=== PATIENT | male | born 1940 | race Caucasian/White ===

== ENCOUNTER 2022-04-16 14:18 | Outpatient (CLI) | payer MEDICARE, SELFPAY ==
[2022-04-16 14:18] LABS: Albumin* 3.8 g/dL (3.3-5.0)
[2022-04-16 14:19] LABS: Chloride* 106 mmol/L (96-114); Potassium* 4.3 mmol/L (3.6-5.1); Sodium* 142 mmol/L (135-149)
[2022-04-16 14:21] LABS: Bilirubin Total* 0.4 mg/dL (0.1-1.5); Carbon Dioxide* 27 mmol/L (20-32); Cholesterol* 133 mg/dL (90-199); Creatinine* 1.3 mg/dL (0.5-1.5); Estimated Glomerular Filt Rate 55 ml/min
[2022-04-16 14:22] LABS: Alanine Aminotransferase* 27 U/L (4-50); Alkaline Phosphatase* 106 U/L (40-150); Aspartate Amino Transferase* 27 U/L (12-35); Blood Urea Nitrogen* 28 mg/dL (7-30); Calcium* 8.7 mg/dL (8.4-10.6); Glucose* 134 mg/dL (60-115); HDL Cholesterol* 37 mg/dL (>=40); LDL Cholesterol Calculated 77 mg/dL (<100); Triglycerides* 96 mg/dL (40-149)
[2022-04-16 14:50] LABS: PSA Screen* 2.82 ng/mL (0.10-4.00)
== END 2022-04-16 14:19 | disposition home or self-care (01) ==
PROVIDERS: PCP Family Medicine; Visit Provider Family Medicine
DX: E78.5 Hyperlipidemia, unspecified (principal); I10 Essential (primary) hypertension; Z00.00 Encounter for general adult medical examination without abnormal findings
CPT/HCPCS: 80053; 80061; 84153

== ENCOUNTER 2022-06-12 11:15 | Outpatient (RCR) | payer MEDICARE, SELFPAY ==
--- NOTE | 2022-05-01 15:51 | PT.OPE ---
[facility] PT [facility] Eval Start: 05/01/22 12:38 Freq: Status: Active Protocol: Document 05/01/22 15:47 CJT (Rec: 05/01/22 15:50 CJT [id number]) E-signed By Segun Cotter PT Physical Therapy Outpatient Evaluation Insurance Information Recert Due Date 06/12/22 Insurance Name Medicare Jason,Raghavendra Medical Diagnosis M25.511 - R shoulder pain Treating Diagnosis M25.511 - R shoulder pain Referring Chandana Grace MD Subjective Subjective Pt presents with complaints of R shoulder pain and R elbow pain. Pt does not know where the pain came from. Can no longer sleep on his R side due to pain. Rolling on to his R side causes him to wake. Elevating the arm causes pain in the shoulder and elbow as well. Pain is 3-5/10 on average. Pt has been trying to avoid lifting his arm to reach objects or even eating due to pain in shoulder and elbow. 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 Date of Last Physician Visit 04/22/22 Current Work Status Retired Precautions Therapy Limitations/Systems Review Not Limited Objective Range of Motion Cervical ROM - WFL R Shoulder ROM Flexion/Abduction/IR/ER - 135/ 125/30(PSIS)/65 L Shoulder ROM Flexion/Abduction/IR/ER - 135/ 145/45 (T12)/80 Strength Cervical Strength - 5/5 MMT for all R Shoulder Strength Flexion - 5/5 MMT Abduction - 5/5 MMT * IR - 5/5 MMT * ER - 4/5 MMT * Empty Can - 4/5 MMT * *denotes pain in shoulder L Shoulder ROM - 5/5 MMT for all Palpation Palpation: tender with palpation to R UT, pec minor, infraspinatus, and serratus anterior; spasms noted in each of these mm as well Posture Rounded shoulders, excessive thoracic kyphosis Other/Pertinent Objective [place]'s, Sahni/Madi, Speeds, Jass's tests negative Assessment Assessment/Impression Pt is an 82 year ld male who presents to OP PT clinic with complaints of R shoulder pain. Pts pain is sharp, intermittent, and relieves with rest. Pain is made worse with elevation and laying on his R side in bed. This often wakes him up at night due to pain when he rolls over. Testing reveals deficits in strength of R shoulder and ROM of B shoulders (See objective ). Skilled PT services are medically necessary to address deficits and return patient to highest level of function. Recommend physical therapy sessions 2/week for 6 weeks. Pt agrees with this plan. Printout of HEP was given for I completion and pt gives verbal understanding of each exercise. Primary Functional Limitations Laying on R side, elevating R arm Plan of Care Rehabilitation Potential Good Physical Therapy Goals STG - To be completed in 2-3 weeks: 1. Pt will demonstrate improved shoulder flexion and abduction by 10+ degrees so that they may reach for cans of soup on top shelf in pantry . 2. Pt will report reduction in shoulder pain by factor of 2 so that they may sleep without waking due to pain while shifting position in the night . LTG - To be completed in 6-8 weeks: 1. Pt to be I with HEP so that they may I manage progression of symptoms. 2. Pt will report ability to lay on R shoulder in bed without increase in pain so that they may sleep in preferred position to achieve better night's sleep. 3. Pt will demo equal ROM bilaterally and full and pain free strength so that they may lift pans to top shelf in cupboard. Treatment Plan/Direct Interventions Heat,Ice/Cold/Vasopneumatic, Joint Mobilization,Manual Therapy,Self-Care/Home Management,Therapeutic Exercises,Ultrasound Frequency/Duration 2/week for 6 weeks Patient Will Be Discharged From Therapy Completion of LTG(s),Skills Plateau,Independent w/HEP, Independently Progressing Evaluation Billing Untimed Code Treatment Minutes 33 PT Eval No Charge No Complexity Low Certification Information Initial Certification Date 05/01/22 Ending Certification Date 06/12/22 Provider Signature Shows Agreement With POC & Medical Necessity Physician Comment/Change Comment or Changes Physician NPI Number #
--- NOTE | 2022-06-10 12:14 | PT.OPDN ---
PT [facility] Daily Note PT [facility] Out[facility] Daily Note Start: 05/01/22 12:38 Freq: Status: Active Protocol: Document 06/10/22 11:16 CJT (Rec: 06/10/22 12:14 CJT [id number]) E-signed By Segun Cotter, PT PT [facility] Daily Progress Note Visit Information Note Type Recert/Progress Note Visit Number 10 Insurance Authorized Visits tbd Physician Authorized Visits eval and treat Insurance Information Recert Due Date 06/12/22 Insurance Name Medicare B,UCare Medical Diagnosis M25.511 - R shoulder pain Treating Diagnosis M25.511 - R shoulder pain Referring Chandana Grace MD Subjective Subjective Pt is pleased with his progress and has no complaints in regard to his shoulder at this time. Has been moderately consistent with his HEP. Pain Comments 0/10 Home Exercise Home Exercise Comments [id number] Objective Other/Pertinent Objective R shoulder AROM: 150/164/65(L2 )/85 -Initial eval: 135/125/30(PSIS )/65 L shoulder AROM: 145/160/L1/ 85 Shoulder strength measured as 5/5 MMT for all motions bilaterally Patient Instructed in Risks/Benefits Yes Therapeutic Exercise Therapeutic Exercise Minutes (minutes) 18 Therapeutic Exercise: To Restore UBE x 6 minutes Functional Status Flexion stretch with OP x 60 Abduction stretch with OP x 60 Passive pec stretch 2x30 Seated CC Row 3 x 10, 27.5#, 35#, 40# Seated shoulder ER with palms up/down 2 x 10 ea, 4 hold Wall shoulder flexion stretch 2 x 30 Wall abduction stretch 2 x 30 Manual Therapy Techniques Manual Therapy Minutes (minutes) 25 Manual Therapy Techniques STM performed to R>L UT, levator, pec minor/major, LHBT , infraspinatus, teres group to reduce tissue tension and improve extensibility. Treatment Minutes Timed Code Treatment Minutes 43 Total Treatment Time 43 Billing Units Manual Therapy Units 2 Therapeutic Exercise Units 1 Assessment/Impression Assessment/Impression Shorty shows well-improved shoulder ROM since starting physical therapy. He was very consistent with his HEP early on but has since reduced his frequency. Strength measures 5 /5 MMT for all shoulder motions B. With [place] posture and thoracic kyphosis I would assume that his overall improvement has hit a plateau. Will meet for final session on Friday to devise comprehensive HEP for I maintenance moving forward. Plan of Care Physical Therapy Goals STG - To be completed in 2-3 weeks: 1. Pt will demonstrate improved shoulder flexion and abduction by 10+ degrees so that they may reach for cans of soup on top shelf in pantry . MET 2. Pt will report reduction in shoulder pain by factor of 2 so that they may sleep without waking due to pain while shifting position in the night . MET LTG - To be completed in 6-8 weeks: 1. Pt to be I with HEP so that they may I manage progression of symptoms. 2. Pt will report ability to lay on R shoulder in bed without increase in pain so that they may sleep in preferred position to achieve better night's sleep. MET 3. Pt will demo equal ROM bilaterally and full and pain free strength so that they may lift pans to top shelf in cupboard. MET Daily Plan of Care Continue per POC Recertification Information Provider Signature Shows Agreement With POC & Medical Necessity
== END 2022-09-13 08:14 | disposition home or self-care (01) ==
PROVIDERS: PCP Family Medicine; Visit Provider Family Medicine
DX: M25.511 Pain in right shoulder (principal); Z51.89 Encounter for other specified aftercare
CPT/HCPCS: 97110; 97140; 97161

== ENCOUNTER 2023-06-12 14:56 | Outpatient (CLI) | payer MEDICARE, SELFPAY | END 2023-06-12 14:57 | disposition home or self-care (01) | PROVIDERS: PCP Family Medicine; Visit Provider Family Medicine | DX: Z12.5 Encounter for screening for malignant neoplasm of prostate (principal); I10 Essential (primary) hypertension; E78.2 Mixed hyperlipidemia; Z79.899 Other long term (current) drug therapy; R73.03 Prediabetes | CPT/HCPCS: 80053; 80061; 82306; 84153; 84550 ==

== ENCOUNTER 2023-09-16 10:05 | Outpatient (CLI) | payer MEDICARE, SELFPAY | END 2023-09-16 10:06 | disposition home or self-care (01) | LOC: NFLDREF 09-17 11:30 | PROVIDERS: PCP Family Medicine; Referring Provider Family Medicine; Visit Provider Family Medicine | DX: R97.20 Elevated prostate specific antigen [PSA] (principal) | CPT/HCPCS: G0103 ==

== ENCOUNTER 2024-08-24 08:46 | Outpatient (CLI) | payer MEDICARE, SELFPAY | END 2024-08-24 08:47 | disposition home or self-care (01) | LOC: LKVREF 08:47 | PROVIDERS: PCP Family Medicine; Visit Provider Family Medicine | DX: R73.03 Prediabetes (principal); E78.5 Hyperlipidemia, unspecified | CPT/HCPCS: 80053; 80061 ==

== ENCOUNTER 2025-05-09 13:39 | Outpatient (CLI) | payer MEDICARE, SELFPAY | END 2025-05-09 13:40 | disposition home or self-care (01) | LOC: RAD 13:40 | PROVIDERS: PCP Family Medicine; Visit Provider Internal Medicine | DX: I50.9 Heart failure, unspecified (principal); I44.7 Left bundle-branch block, unspecified; I51.7 Cardiomegaly | CPT/HCPCS: 93306 ==